=== PATIENT | female | born 1975 | race Two or more races ===

== ENCOUNTER 2016-09-19 12:31 | Emergency (ER) | payer SELFPAY ==
[2016-09-19 12:39] VITALS: TEMP 98.6
--- NOTE | 2016-09-19 12:55 | EDPHY ---
H & P Stated Complaint: slipped on ice fell hitting l cheek/headache/no loc/no neck pain Time Seen by Provider: 09/19/16 12:45 HPI/ROS: CHIEF COMPLAINT: Facial and head injury HISTORY OF PRESENT ILLNESS: 40-year-old female generally healthy, no anticoagulant use, visiting from [place] for a physics conference, staying at a hotel, slipped on ice outside a hotel landing forward impacting the left side of her head and her mandible and maxilla. She is complaining of pain at same location. This occurred shortly prior to arrival. No loss of consciousness. No midline C-spine pain. She does feel like she is thinking more slowly. No peripheral paresthesia, weakness, numbness. No chest pain or trauma. No back pain or trauma. No straddle injury. PRIMARY CARE PROVIDER:in [place] REVIEW OF SYSTEMS: A ten point review of systems was performed and is negative with the exception of the items mentioned in the HPI PAST MEDICAL/SURGICAL HISTORY: no anticoagulant use, no relevant medical/ surgical history SOCIAL HISTORY: denies alcohol use at time of incident PHYSICAL EXAM 1) GENERAL: Well-developed, well-nourished, alert and oriented. Appears uncomfortable, has an ice pack on her face Answering questions appropriately. 2) HEAD: Normocephalic, atraumatic 3) HEENT: Pupils equal, round, reactive to light bilaterally. Negative Horners. Nasopharynx, oropharynx, clear. No deformity or angulation of nose. No septal hematoma. No rhinorrhea. No oral trauma. Ears bilaterally with normal tympanic membranes. No hemotympanum. No fluid or blood in the external auditory canal. No raccoon eyes. No Shay sign. Teeth are normally aligned with no gross malocclusion, tender to palpation left mandible and maxilla. No intraoral lesions or bleeding seen . 4) NECK: No cervical collar is on. Posterior cervical spine is nontender, no stepoff, no effusion. Full range of motion which does not elicit any midline cervical spine pain, no posterior midline tenderness, no step-off. 5) LUNGS: Clear to auscultation bilaterally, no wheezes, no rhonchi, no retractions. No obvious signs of trauma. No chest wall pain. No flaring, no grunting. Moving symmetrically. No crepitus. 6) HEART: Regular rate and rhythm, 7) ABDOMEN: No guarding, no rebound, no focal tenderness, no peritoneal signs, no signs of trauma, no ecchymosis 8) MUSCULOSKELETAL: Moving all extremities, no focal areas of tenderness, no obvious trauma. 9) BACK: No midline vertebral tenderness, no fluctuance, no step-off, no obvious trauma, no visual or palpable abnormality. 10) SKIN: No laceration. No abrasion DIFFERENTIAL DIAGNOSIS: [ Not necessarily in any particular order, my differential diagnosis includes, but is not limited to, concussion, skull fracture, intraparenchymal contusion, subarachnoid, subdural and epidural hematoma. The patient understands that this diagnosis is provisional and can never be 100% accurate. - Personal History LMP (Females 10-55): 8-14 Days Ago Current Tetanus/Diphtheria Vaccine: Yes - Medical/Surgical History Hx Asthma: No Hx Chronic Respiratory Disease: No Hx Diabetes: No Hx Cardiac Disease: No Hx Renal Disease: No Hx Cirrhosis: No Hx Alcoholism: No Hx HIV/AIDS: No Hx Splenectomy or Spleen Trauma: No Other PMH: hypothyroid - Social History Smoking Status: Never smoked Constitutional: Initial Vital Signs Temperature (C) 37 C 09/19/16 12:34 Heart Rate 71 09/19/16 12:34 Respiratory Rate 16 09/19/16 12:34 Blood Pressure 113/66 09/19/16 12:34 O2 Sat (%) 98 09/19/16 12:34 O2 Delivery Mode Room Air Allergies/Adverse Reactions: No Known Allergies Allergy (Unverified 09/19/16 12:33) Home Medications: Medication Instructions Recorded Levothyroxine 09/19/16 Medical Decision Making - Diagnostics Imaging: CT Head (Without Contrast) September 19, 2016 Indication: Fall. Left cheek swelling and pain. Technique: Standard noncontrast head CT protocol utilizing 5 mm thick collimated slices and field of view of 23 cm. Dose reduction techniques were utilized. Findings: No intracranial hemorrhage, contusion, swelling, or extraaxial fluid collection. The ventricles are normal caliber and midline. The george and white matter has normal attenuation. No acute fracture. The paranasal sinuses are clear. Minimal soft tissue swelling overlies the left zygoma. Impression: No acute fracture or evidence of acute intracranial injury. Comment: Results discussed with Ata Williamson PA-C, at 1:25 p.m. on September. Dictated By: Yoshi Vargas MD CT Scan of the Face Indication: Trauma. Left-sided facial swelling. Technique: 0.625 mm thick collimated slices were obtained through the face from just below the mandible to above the frontal sinuses. The data was reconstructed in the sagittal and coronal plane. Dose reduction techniques were utilized. Findings: Mild soft tissue swelling overlies the left zygoma. No acute facial fracture. The mandible is intact and anatomically aligned. The frontal, ethmoid, maxillary, sphenoid and mastoid air cells are well aerated and clear. The mandible and imaged portion of the upper cervical spine are normal. Impression: Negative. No acute facial fracture. Comment: Results discussed with Ata Williamson PA-C, at 1:25 p.m. on September. Dictated By: Yoshi Vargas MD Images reviewed by myself ED Course/Re-evaluation: 1:44 p.m.: Re-evaluation. GCS 15. Answering questions appropriately. No perseveration. Plan will be discharged with my usual and customary head injury precautions and instructions including 2nd impact syndrome. - Data Points Medications Given: Discontinued Medications Acetaminophen (Tylenol) 650 mg PO EDNOW ONE Stop: 09/19/16 13:59 Last Admin: 09/19/16 14:00 Dose: 650 mg Departure - Departure Disposition: Home, Routine, Self-Care Clinical Impression: Fall due to slipping on ice or snow, Head injury, Blunt facial injury Condition: Good Instructions: Head Injury (ED), Concussion (ED) Additional Instructions: ALTHOUGH THERE IS NO EVIDENCE OF SERIOUS HEAD INJURY AT THIS TIME, DELAYED SIGNS CAN APPEAR 24 TO 48 HOURS AFTER INJURY. WE RECOMMEND THAT YOU DESIGNATE A FRIEND OR FAMILY MEMBER TO OBSERVE YOU OVER THE NEXT FEW DAYS TO ENSURE THAT YOUR CONDITION IS PROGRESSING NORMALLY. PLEASE RETURN TO THE EMERGENCY DEPARTMENT (ED) IMMEDIATELY IF YOU HAVE INCREASED HEADACHE, PERSISTENT HEADACHE , VOMITING, WEAKNESS, CONFUSION OR VISUAL PROBLEMS. WE RECOMMEND THAT YOU DO NOT RESUME CONTACT SPORTS OR ACTIVITIES THAT TAKE COORDINATION OR BALANCE SUCH SKIING OR RIDING A BICYCLE UNTIL CLEARED TO DO SO BY YOUR DOCTOR OR BY A NEUROLOGIST. Referrals: Livia Hendrix MD [Medical Doctor] - 2-3 days, call for appt.
--- NOTE | 2016-09-19 13:34 | CT ---
CT Head (Without Contrast) September 19, 2016 Indication: Fall. Left cheek swelling and pain. Technique: Standard noncontrast head CT protocol utilizing 5 mm thick collimated slices and field of view of 23 cm. Dose reduction techniques were utilized. Findings: No intracranial hemorrhage, contusion, swelling, or extraaxial fluid collection. The ventri cles are normal caliber and midline. The george and white matter has normal attenuation. No acute fract ure. The paranasal sinuses are clear. Minimal soft tissue swelling overlies the left zygoma. Impression: No acute fracture or evidence of acute intracranial injury. Comment: Results discussed with Ata Williamson PA-C, at 1:25 p.m. on September 19, 2016.
--- NOTE | 2016-09-19 13:35 | CT ---
CT Scan of the Face Indication: Trauma. Left-sided facial swelling. Technique: 0.625 mm thick collimated slices were obtained through the face from just below the ryan ble to above the frontal sinuses. The data was reconstructed in the sagittal and coronal plane. Dose reduction techniques were utilized. Findings: Mild soft tissue swelling overlies the left zygoma. No acute facial fracture. The mandible is intact and anatomically aligned. The frontal, ethmoid, maxillary, sphenoid and mastoid air cells are well aerated and clear. The mandible and imaged portion of the upper cervical spine are normal. Impression: Negative. No acute facial fracture. Comment: Results discussed with Ata Williamson PA-C, at 1:25 p.m. on September 19, 2016.
[2016-09-19] MEDS ORDERED: ACETAMINOPHEN 325 MG TAB PO ONE (13:58)
[2016-09-19 14:03] VITALS: BP 119/74; PULSE 85; RESP 20; O2SAT 94
== END 2016-09-19 14:03 | disposition home or self-care (01) ==
DX: S09.90XA Unspecified injury of head, initial encounter (principal); S09.93XA Unspecified injury of face, initial encounter; W00.0XXA Fall on same level due to ice and snow, initial encounter; Y92.89 Other specified places as the place of occurrence of the external cause